=== PATIENT | male | born 1995 | race Caucasian/White ===

== ENCOUNTER 2021-11-23 00:50 | Emergency (ER) | payer MEDICAID, MEDICARE, OTHER ==
--- NOTE | 2021-11-23 02:14 | ED Physician Documentation ---
PD HPI SKIN - Stated complaint Stated Complaint: SPIDER BITE ON SHOULDER BLADE - Chief complaint Chief Complaint: Wound - History obtained from History obtained from: Patient - Additional information Additional information: 26yM p/w abscess to R shoulder that was partially draining tonight prior to arrival. denies fevers. previously healthy. Review of Systems Skin: reports: Other (abscess) PD PAST MEDICAL HISTORY - Present Medications Home Medications: Ambulatory Orders Medication Instructions Recorded Confirmed cephALEXin [Keflex] 500 mg PO Q6H #28 11/23/21 - Allergies Allergies/Adverse Reactions: Allergies Allergy/AdvReac Type Severity Reaction Status Date / Time No Known Drug Allergies Allergy Verified 11/23/21 00:57 PD ED PE NORMAL - Vitals Vital signs reviewed: Yes - General General: Alert and oriented X 3, No acute distress, Well developed/nourished - HEENT HEENT: Atraumatic, PERRL, EOMI - Derm Derm: Normal color, Warm and dry, Other (3cm induration with central purulent discharge to R shoulder) Results - Vitals Vitals: Vital Signs - 24 hr 11/23/21 00:57 Temperature 36.5 C Heart Rate 100 Respiratory 16 Rate Blood Pressure 133/77 H O2 Saturation 98 Oxygen O2 Source Room air Procedures - Abscess I&D (location) Back right Preparation: Confirmed with ultrasound, Lidocaine 1%, With epi Incision: Incised with scalpel, Purulent drainage, Irrigated, Packed, Culture obtained Other: Pt tolerated well, Dressing applied, Antibiotic prescribed PD MEDICAL DECISION MAKING - ED course ED course: 26yM p/w abscess, drained without issue. return precautions given. plan to f/u for wound check in 48-72h. Departure - Departure Disposition: 01 Home, Self Care Clinical Impression: Abscess Condition: Good Instructions: ED Abscess IandD Prescriptions: cephALEXin [Keflex] 500 mg PO Q6H #28 Comments: You were seen in the ED for an abscess which was drained and packed. packing needs to be checked in 48 to 72 hours at urgent care or walk in clinic. If you can't go to either of these places you can have it done here. Please take your antibiotics as prescribed and return to the ED if you develop fever, new or worsening symptoms or have other concerns.
[2021-11-23 02:23] VITALS: BP 126/82
== END 2021-11-23 02:22 | disposition home or self-care (01) ==
LOC: ED 00:50
DX: L02.413 Cutaneous abscess of right upper limb (principal)
CPT/HCPCS: 10061; 87070; 87181; 87205